=== PATIENT | female | born 1950 | race Caucasian/White ===

== ENCOUNTER → 2016-07-15 | Outpatient (CLI) | payer OTHER ==
[~2016-07-15] MED LIST: ASCA500 PO; B-CO-25 PO; CALC-354 PO; CALC500C70 PO; CHOL200027 PO; ELET40TA PO; LEVO25TA PO; LUTE10TA PO; MULTCHW PO; OMEG10007 PO; PANT40TA PO; SELENIUM PO; SIMV20TA5 PO; VITA400C28 PO; ZEAX5POW PO
[2016-07-15 11:06] LABS: BASO % 0.5 %; BASO ABS # 0.03 K/uL (0-0.2); COMPLETE YES; EOS % 3.4 %; HEMATOCRIT 38.9 % (37-47); IG% 0.2 %; LYMPH % 31.7 %; LYMPH ABS # 1.95 K/uL (1.2-3.4); MEAN CORPUSCULAR HEMOGLOBIN 31.9 pg (25-34); MEAN CORPUSCULAR HGB CONC 33.9 g/dl (32-36); MEAN PLATELET VOLUME 10.8 fL (7.4-10.4); MONO % 10.2 %; PLATELET COUNT 389 K/uL (130-400); RED BLOOD COUNT 4.14 M/uL (4.2-5.4); WHITE BLOOD COUNT 6.16 K/uL (4.8-10.8)
[2016-07-15 11:39] LABS: ALT/SGPT 24 U/L (12-78); BLOOD UREA NITROGEN 11 mg/dl (7-18); BUN/CREATININE RATIO 12.2 (10-20); CALCIUM 8.8 mg/dl (8.5-10.1); CARBON DIOXIDE 29 mmol/L (21-32); CHLORIDE 108 mmol/L (98-107); CHOLESTEROL 180 mg/dl (0-200); GLUCOSE 92 mg/dl (70-99); SODIUM 144 mmol/L (136-145)
[2016-07-15 11:49] LABS: ALKALINE PHOSPHATASE 75 U/L (45-117); AST/SGOT 22 U/L (15-37); HDL CHOLESTEROL 60 mg/dl; LDL CHOLESTEROL CALCULATED 97 mg/dl; TRIGLYCERIDES 114 mg/dl (0-150); VERY LOW DENSITY LIPOPROT CALC 23 mg/dl
--- NOTE | 2016-07-19 09:34 | CODING QUERY MEDICAL NECESSITY ---
SUPPORTING DIAGNOSIS NEEDED A supporting diagnosis is required for the test/procedure performed on this patient in order for us to be reimbursed by the patient's insurance. Please provide a supporting diagnosis for the following test/procedure listed below next to the test name along with your signature. *If there is no additional diagnosis for this patient that would support the following test/procedure please document that below next to the test/procedure. Test(s)/Procedure(s) that require a supporting diagnosis: DOS 07/15 * Vitamin D DIAGNOSIS: * TSH DIAGNOSIS: * Lipids DIAGNOSIS: Provider Signature: Date: Thank you Karina Davis Health Information Management Once completed, please kindly fax back to [phone] For questions please call [phone]
== END | disposition home or self-care (01) ==
LOC: C.LABBC 08:24
PROVIDERS: ATTEND Internal Medicine
DX: M85.80 Other specified disorders of bone density and structure, unspecified site (principal)

== ENCOUNTER → 2016-07-29 | Outpatient (CLI) | payer OTHER | END | disposition home or self-care (01) | LOC: C.LABBC 10:16 | PROVIDERS: ATTEND Internal Medicine | DX: Z11.59 Encounter for screening for other viral diseases (principal) ==

== ENCOUNTER → 2016-08-10 | Outpatient (CLI) | payer OTHER | END | disposition home or self-care (01) | LOC: C.MAMM 13:18 | PROVIDERS: ATTEND Internal Medicine | DX: E04.1 Nontoxic single thyroid nodule (principal); M85.80 Other specified disorders of bone density and structure, unspecified site; Z78.0 Asymptomatic menopausal state ==

== ENCOUNTER → 2016-10-20 | Day surgery (SDC) | payer OTHER ==
[2016-10-18 11:23] VITALS: BMI 23.0
[~2016-10-20] VITALS: Ht 152.4 cm; Wt 54.5 kg
[~2016-10-20] MED LIST changes: -CALC500C70 PO; -ELET40TA PO; +LIDOCAINE HCL 2% 2 ML VIAL (20MG/ML) ONE; +PROPOFOL IV EMULSION 10 MG/ML 20 ML VIAL IV ONE
--- NOTE | 2016-10-20 10:06 | Endo History and Physical ---
History & Physical Date of Service: Oct 20, 2016. Chief Complaint: GERD, Dysphagia Referring Physician: Dr. Poli Carter History of Present Illness 66 yo CF who presents for EGD secondary to GERD, Parker's Esophagus, and Dysphagia. Past Medical History High Cholesterol, Thyroid Disease Past Surgical History Hx Cardiac Surgery: No Hx Internal Defibrillator: No Hx Pacemaker: No Hx Abdominal Surgery: Yes (OLENA BSO, ECTOPIC WITH LEFT SALPINGECTOMY) Hx of Implantable Prosthesis: No Hx Post-Op Nausea and Vomiting: No Hx Cancer Surgery: No Hx Thoracic Surgery: No Hx Orthopedic: No Hx Urinary Tract Surgery: No Family History Colon CA Social History Smoking Status: Never Smoker Hx Substance Use: No Hx Alcohol Use: No Allergies Coded Allergies: Carbamazepine (Verified Allergy, Mild, ELEVATED LIVER ENZYMES, 10/20/16) Sulfa Drugs (Verified Allergy, Unknown, HIVES, 10/20/16) Erythromycin (Verified Adverse Reaction, Unknown, N/V, 10/20/16) Current Medications Reported Home Medications Medications Dose Route/Sig Max Daily Dose Days Date Category Vitamin C (Ascorbic Acid) 500 Mg Tab 1 Tab PO NOON 10/18/16 Reported Caltrate 600+D (Calcium Carbonate-Cholecalcife) 1 Tab Tab 1 Tab PO BID 10/18/16 Reported Synthroid (Levothyroxine Sodium) 25 Mcg Tab 25 Mcg PO QAM 09/10/15 Reported [Selenium] 200 Mg PO NOON 09/10/15 Reported Centrum Silver (Multiple Vitamins W/ Minerals) 1 Chw Chw 1 Tab PO NOON 09/10/15 Reported Lutein 10 Mg Tab 1 Tab PO NOON 09/10/15 Reported Zeaxanthin (Zeaxanthin (Bulk)) 1 Pow Pow 2 Mg PO NOON 05/20/14 Reported Vitamin C (Ascorbic Acid) 500 Mg Tab 1 Tab PO QAM 05/20/14 Reported Vitamin D-3 (Cholecalciferol) 2,000 Unit Tab 1 Tab PO NOON 05/20/14 Reported Super B Complex Maxi (B-Complex W/ Folic Acid) 1 Tab Tab 1 Tab PO NOON 05/20/14 Reported Zocor (Simvastatin) 20 Mg Tab 20 Mg PO QPM 05/20/14 Reported Protonix (Pantoprazole Sodium) 40 Mg Tab 40 Mg PO QAM 05/20/14 Reported Alph-E (Vitamin E) 400 Unit Cap 1 Tab PO NOON 01/29/14 Reported [place]-3 (Fish Oil) 1 Ea Cap 1 Cap PO NOON 02/13/09 Reported Vital Signs Weight (Kilograms): 54.55 Height (Feet): 5 Height (Inches): 0 Physical Exam General Appearance: WD/WN, no apparent distress Respiratory/Chest: Auscultation: breath sounds normal Cardiovascular: Heart Auscultation: RRR Abdomen: Bowel Sounds: normal Inspection & Palpation: soft, non-distended, no tenderness, guarding & rebound Assessment and Plan Assessment: 66 yo CF who presents for EGD secondary to GERD, Parker's esophagus and Dysphagia. Plan: Proceed with EGD.
[2016-10-20 10:07] VITALS: Ht 152.4 cm; Wt 54.5 kg
--- NOTE | 2016-10-20 10:57 | Discharge Instructions ---
Endoscopy Patient Instructions Date / Procedure(s) Performed Oct 20, 2016. EGD Allergy Information Coded Allergies: Carbamazepine (Verified Allergy, Mild, ELEVATED LIVER ENZYMES, 10/20/16) Sulfa Drugs (Verified Allergy, Unknown, HIVES, 10/20/16) Erythromycin (Verified Adverse Reaction, Unknown, N/V, 10/20/16) Discharge Date / Findings Oct 20, 2016. Gastric polyps with biopsies Parker's Esophagus with biopsies Balloon dilation of the esophagus to 20 mm Hiatal hernia Medication Instructions OK to resume all medications today as prescribed Reported Home Medications Medications Dose Route/Sig Max Daily Dose Days Date Category Vitamin C (Ascorbic Acid) 500 Mg Tab 1 Tab PO NOON 10/18/16 Reported Caltrate 600+D (Calcium Carbonate-Cholecalcife) 1 Tab Tab 1 Tab PO BID 10/18/16 Reported Synthroid (Levothyroxine Sodium) 25 Mcg Tab 25 Mcg PO QAM 09/10/15 Reported [Selenium] 200 Mg PO NOON 09/10/15 Reported Centrum Silver (Multiple Vitamins W/ Minerals) 1 Chw Chw 1 Tab PO NOON 09/10/15 Reported Lutein 10 Mg Tab 1 Tab PO NOON 09/10/15 Reported Zeaxanthin (Zeaxanthin (Bulk)) 1 Pow Pow 2 Mg PO NOON 05/20/14 Reported Vitamin C (Ascorbic Acid) 500 Mg Tab 1 Tab PO QAM 05/20/14 Reported Vitamin D-3 (Cholecalciferol) 2,000 Unit Tab 1 Tab PO NOON 05/20/14 Reported Super B Complex Maxi (B-Complex W/ Folic Acid) 1 Tab Tab 1 Tab PO NOON 05/20/14 Reported Zocor (Simvastatin) 20 Mg Tab 20 Mg PO QPM 05/20/14 Reported Protonix (Pantoprazole Sodium) 40 Mg Tab 40 Mg PO QAM 05/20/14 Reported Alph-E (Vitamin E) 400 Unit Cap 1 Tab PO NOON 01/29/14 Reported [place]-3 (Fish Oil) 1 Ea Cap 1 Cap PO NOON 02/13/09 Reported Provider Instructions Activity Restrictions - No exercising or heavy lifting for 24 hours. - Do not drink alcohol the day of the procedure. - Do not drive a car or operate machinery until the day after the procedure. - Do not make any important decisions or sign important papers in 24 hours after the procedure. Following Day: - Return to full activity which may include returning to work/school. Diet Start your diet with liquids and light foods (jello, soup, juice, toast). Then eat your usual diet if not nauseated. Treatment For Common After Affects For mild abdominal pain, bloating, or excessive gas: - Rest - Eat lightly - Lie on right side Follow-Up Information Follow-up with Dr. Poli Carter as scheduled Anesthesia Information What You Should Know You have had a procedure that required some medicine to reduce anxiety and discomfort. This treatment is called moderate sedation. After receiving the treatment, you may be sleepy, but you will be able to breathe on your own. The effects of the treatment may last for several hours. Follow these instructions along with Activity/Diet recommendations noted above: * Do NOT do anything where dizziness or clumsiness would be dangerous. * Rest quietly at home today, then you can be up and about tomorrow. * Have a responsible person stay with you the rest of today. * You may have had an I.V. today. If so, you may take the dressing off later today. Recommendations Call your doctor if: * Trouble breathing * Continuous vomiting for more than 24 hours * Temperature above 101 degrees * Severe abdominal pain or bloating * Pain not relieved by pain medicine ordered * There is increased drainage or redness from any incision * A large amount of rectal bleeding greater than 2-3 tablespoons. (If you had a polyp/s removed or have hemorrhoids, a small amount of blood - from the rectum is to be expected.) * You have any unanswered questions or concerns. IN THE EVENT OF A SERIOUS EMERGENCY, GO TO THE NEAREST EMERGENCY ROOM Your discharge instructions were prepared by provider Nir Darnell. Patient Instructions Signature Page Lucrecia Hirsch Patient (or Guardian) Signature/Date: I have read and understand the instructions given to me by my caregivers. Caregiver/RN/Doctor Signature/Date: The above-named patient and/or guardian has received patient instructions on this date. + Original Patient Signature Page (only) stays with chart. Please make copy for patient.
--- NOTE | 2016-10-20 11:03 | GI REPORT ---
Procedure Date: 10/20/2016 10:08 AM Procedure: Upper GI endoscopy Indications: Dysphagia, Gastro-esophageal reflux disease, Follow-up of Parker's esophagus Medicines: Monitored Anesthesia Care Complications: No immediate complications. Estimated Blood Loss: Estimated blood loss: none. Procedure: Pre-Anesthesia Assessment: - Prior to the procedure, a History and Physical was performed, and patient medications and allergies were reviewed. The patient's tolerance of previous anesthesia was also reviewed. The risks and benefits of the procedure and the sedation options and risks were discussed with the patient. All questions were answered, and informed consent was obtained. Prior Anticoagulants: The patient has taken no previous anticoagulant or antiplatelet agents. ASA Grade Assessment: II - A patient with mild systemic disease. After reviewing the risks and benefits, the patient was deemed in satisfactory condition to undergo the procedure. After obtaining informed consent, the endoscope was passed under direct vision. Throughout the procedure, the patient's blood pressure, pulse, and oxygen saturations were monitored continuously. The scope was introduced through the mouth, and advanced to the second part of duodenum. The upper GI endoscopy was accomplished without difficulty. The patient tolerated the procedure well. Findings: There were esophageal mucosal changes consistent with short-segment Parker's esophagus present at the gastroesophageal junction. The maximum longitudinal extent of these mucosal changes was 2 cm in length. Mucosa was biopsied with a cold forceps for histology. One specimen bottle was sent to pathology. No endoscopic abnormality was evident in the esophagus to explain the patient's complaint of dysphagia. It was decided, however, to proceed with dilation at the gastroesophageal junction. A TTS dilator was passed through the scope. Dilation with an 18-19-20 mm balloon (to a maximum balloon size of 20 mm) dilator was performed. The dilation site was examined and showed no change. Multiple 2 to 6 mm sessile polyps with no bleeding and no stigmata of recent bleeding were found in the gastric fundus. Biopsies were taken with a cold forceps for histology. A small hiatus hernia was present. Impression: - Esophageal mucosal changes consistent with short-segment Parker's esophagus. Biopsied. - No endoscopic esophageal abnormality to explain patient's dysphagia. Esophagus dilated. Dilated. - Multiple gastric polyps. Biopsied. - Small hiatus hernia. Recommendation: - Resume previous diet. - Continue present medications. - Await pathology results. - Return to GI clinic as previously scheduled. Nir Darnell, DO 10/20/2016 11:02:14 AM This report has been signed electronically. Note Initiated On: 10/20/2016 10:08 AM I attest to the content of the Intraoperative Record and orders documented therein, exceptions below
[2016-10-20 11:21] VITALS: BP 137/76; PULSE 63; O2SAT 100
--- NOTE | 2016-10-20 14:30 | Anesthesiology Progress Note ---
Anesthesia Post Op Note Date & Time Oct 20, 2016 at 14:29 Vital Signs Pain Intensity: 0 Vital Signs Past 12 Hours Date Time Temp Pulse Resp B/P Pulse Ox O2 Delivery O2 Flow Rate FiO2 10/20/16 11:21 63 20 137/76 100 Room Air 10/20/16 11:06 68 20 120/65 98 Room Air 10/20/16 10:51 75 20 99/53 98 Room Air 10/20/16 10:15 36.8 77 18 156/88 98 Room Air Notes Mental Status: alert / awake / arousable, participated in evaluation Pt Amnestic to Procedure: Yes Nausea / Vomiting: adequately controlled Pain: adequately controlled Airway Patency, RR, SpO2: stable & adequate BP & HR: stable & adequate Hydration State: stable & adequate Anesthetic Complications: no major complications apparent
== END | disposition home or self-care (01) ==
LOC: C.GI 09:48
PROVIDERS: ATTEND Internal Medicine
DX: R13.10 Dysphagia, unspecified (principal); K21.9 Gastro-esophageal reflux disease without esophagitis; Z09 Encounter for follow-up examination after completed treatment for conditions other than malignant neoplasm; K31.7 Polyp of stomach and duodenum; K44.9 Diaphragmatic hernia without obstruction or gangrene; E78.00 Pure hypercholesterolemia, unspecified; Z68.24 Body mass index [BMI] 24.0-24.9, adult; M19.90 Unspecified osteoarthritis, unspecified site; Z88.1 Allergy status to other antibiotic agents; Z88.2 Allergy status to sulfonamides; Z80.0 Family history of malignant neoplasm of digestive organs

== ENCOUNTER → 2017-02-02 | Outpatient (CLI) | payer OTHER ==
[~2017-02-02] MED LIST changes: -LIDOCAINE HCL 2% 2 ML VIAL (20MG/ML) ONE; -PROPOFOL IV EMULSION 10 MG/ML 20 ML VIAL IV ONE
[2017-02-10 16:01] LABS: CRYPTOSPORIDIUM AG TC 37213 NOT DETECTED (NOT DETECTED); ISOSPORA+CYCLOSPORA NOT DETECTED (NOT DETECTED); O&P GIARDIA AG NOT DETECTED (NOT DETECTED); O&P SOURCE OTHER-STOOL
== END | disposition home or self-care (01) ==
LOC: C.LAB1850 07:19
PROVIDERS: ATTEND Registered Nurse
DX: R19.7 Diarrhea, unspecified (principal)

== ENCOUNTER → 2017-04-01 | Outpatient (CLI) | payer OTHER ==
--- NOTE | 2017-04-01 12:44 | MAMMOGRAPHY REPORT ---
BILATERAL DIGITAL SCREENING MAMMOGRAM WITH CAD: 04/01/2017 CLINICAL HISTORY: Routine screening. TECHNIQUE: Current study was also evaluated with a Computer Aided Detection (CAD) system. Bilateral CC and MLO views were obtained. COMPARISON: Comparison is made to exams dated: 03/30/2016 mammogram, 03/27/2015 mammogram, 03/06/2014 m ammogram, 02/13/2013 mammogram, 02/03/2012 mammogram, and 01/26/2011 mammogram - [facility] nter. BREAST COMPOSITION: There are scattered areas of fibroglandular density in both breasts. FINDINGS: No suspicious masses, calcifications, or areas of architectural distortion are noted in ei ther breast. There has been no significant interval change compared to prior exams. There are stable post surgical changes in the right 12:00 breast at the site of the prior excisional biopsy. Benign dystrophic calcifications at the surgical bed are stable. A linear scar marker denotes a scar on the right 12:00 breast. IMPRESSION: ACR BI-RADS CATEGORY 2: BENIGN There is no mammographic evidence of malignancy. A 1 year screening mammogram is recommended. The pa tient will receive written notification of the results. Approximately 10% of breast cancers are not detected with mammography. A negative mammographic report should not delay biopsy if a clinically suggestive mass is present. Beronica Painter M.D. /:04/01/2017 07:42:04 Multifocal Lens Inspector: Taylor SOFIA)(Marielle), [facility] letter sent: Normal 1/2 BI-RADS Code: ACR BI-RADS Category 2: Benign
== END | disposition home or self-care (01) ==
LOC: C.MAMM 07:20
PROVIDERS: ATTEND Internal Medicine
DX: Z12.31 Encounter for screening mammogram for malignant neoplasm of breast (principal)

== ENCOUNTER → 2017-07-25 | Outpatient (CLI) | payer OTHER ==
[2017-07-25 11:46] LABS: BASO % 0.3 %; BASO ABS # 0.02 K/uL (0-0.2); EOS % 2.6 %; EOS ABS # 0.17 K/uL (0-0.5); HEMATOCRIT 39.4 % (37-47); HEMOGLOBIN 13.4 g/dL (12.0-16.0); IG# 0.02 K/uL (0.00-0.02); LYMPH % 27.2 %; LYMPH ABS # 1.76 K/uL (1.2-3.4); MEAN CELL VOLUME 94.3 fL (80-100); MEAN CORPUSCULAR HEMOGLOBIN 32.1 pg (25-34); MEAN PLATELET VOLUME 10.8 fL (7.4-10.4); MONO % 11.4 %; MONO ABS # 0.74 K/uL (0.11-0.59); NEUT % 58.2 %; NEUT ABS # 3.76 K/uL (1.4-6.5); PLATELET COUNT 385 K/uL (130-400); RED CELL DISTRIBUTION WIDTH CV 12.9 % (11.5-14.5); RED CELL DISTRIBUTION WIDTH SD 44.5 fL (36.4-46.3); WHITE BLOOD COUNT 6.47 K/uL (4.8-10.8)
[2017-07-25 12:06] LABS: ALBUMIN 3.7 gm/dl (3.4-5.0); ALT/SGPT 21 U/L (12-78); BLOOD UREA NITROGEN 12 mg/dl (7-18); CALCIUM 9.1 mg/dl (8.5-10.1); CARBON DIOXIDE 27 mmol/L (21-32); CHOLESTEROL 185 mg/dl (0-200); CREATININE 0.91 mg/dl (0.60-1.20); GLUCOSE 98 mg/dl (70-99); POTASSIUM 4.1 mmol/L (3.5-5.1); SODIUM 140 mmol/L (136-145)
[2017-07-25 12:18] LABS: ALKALINE PHOSPHATASE 77 U/L (45-117); AST/SGOT 20 U/L (15-37); LDL CHOLESTEROL CALCULATED 104 mg/dl; TOTAL PROTEIN 7.4 gm/dl (6.4-8.2)
== END | disposition home or self-care (01) ==
LOC: C.LABBC 08:01
PROVIDERS: ATTEND Internal Medicine
DX: Z00.00 Encounter for general adult medical examination without abnormal findings (principal); K22.70 Barrett's esophagus without dysplasia; E78.5 Hyperlipidemia, unspecified; E03.9 Hypothyroidism, unspecified; R03.0 Elevated blood-pressure reading, without diagnosis of hypertension; E04.1 Nontoxic single thyroid nodule

== ENCOUNTER 2020-12-15 19:24 | Observation (INO) ==
[2020-12-15 20:56] LABS: Appearance Urine Clear (Clear); Bacteria Urine Automated Negative (Negative); Bilirubin Urine Negative (Negative); Blood Urine Trace (Negative); Cast Urine Automated 0 /lpf (0-5); Color Urine Yellow; Epithelial Cell Urine Auto 0-5 /lpf (0-5); Glucose Urine UA Negative (Negative); Ketones Urine Negative (Negative); Leukocyte Esterase Urine Negative (Negative); Nitrite Urine Negative (Negative); Protein Urine Negative (Negative); RBC Urine Automated 0-4 /hpf (0-4); Specific Gravity Urine > 1.045 (1.000-1.030); Urobilinogen Urine Negative (Negative); WBC Urine Automated 0 /hpf (0-5)
[2020-12-15 23:05] LABS: Basophils # (auto) 0.02 K/uL (0-0.2); Basophils % (auto) 0.3 %; Eosinophils # (auto) 0.12 K/uL (0-0.5); Eosinophils % (auto) 1.7 %; Hematocrit (blood only) 37.4 % (37-47); Hemoglobin 12.8 g/dL (12.0-16.0); Immature Granulocytes # (auto) 0.01 K/uL (0.00-0.02); Immature Granulocytes % (auto) 0.1 %; Lymphocytes # (auto) 2.22 K/uL (1.2-3.4); Lymphocytes % (auto) 31.9 %; Mean Corpuscular Hemoglobin 32.2 pg (25-34); Mean Corpuscular Hgb Conc 34.2 g/dL (32-36); Mean Platelet Volume 9.9 fL (7.4-10.4); Monocytes # (auto) 0.69 K/uL (0.11-0.59); Monocytes % (auto) 9.9 %; Neutrophils # (auto) 3.91 K/uL (1.4-6.5); Neutrophils % (auto) 56.1 %; Platelet Count 397 K/uL (130-400); RDW Coefficient of Variation 13.1 % (11.5-14.5); RDW Standard Deviation 45.4 fL (36.4-46.3); Red Blood Count 3.98 M/uL (4.2-5.4); White Blood Count 6.97 K/uL (4.8-10.8)
[2020-12-15] MEDS ORDERED: cefOXitin 2,000 MG/60 ML BAG IV STA (23:07)
--- NOTE | 2020-12-15 23:23 | Emergency Department Note ---
Impression & Plan Abdominal pain, Diverticulitis, Acute appendicitis ED Provider Note NAME: MYLA RODRIGUEZ AGE: 70 SEX: F : 1950 ARRIVES VIA: Walk-In INFORMANT: Patient, ED PROVIDER(S): Ayan Sharp MD CHIEF COMPLAINT: Abd pain HPI: This 70-year-old female who presents emergency department after being sent over from CAT scan. The patient reports that she has had abdominal pain since . The patient notes she has a history of diverticulosis and was told by her doctor to switch to a clear liquid diet when this happens. She reports that the pain was much worse over the weekend however she feels that the clear liquid diet has caused the pain to get better. The patient was sent over for concerns about diverticulitis versus appendicitis on the CAT scan of the abdomen and pelvis. She has not taken anything for the pain prior to arrival. She reports a clear liquid diet made the pain better and nothing really makes it worse. She describes the pain as an aching sensation with radiation across her abdomen. ROS: See above HPI for pertinent positives & negatives. A total of 10 systems reviewed and were otherwise negative. PAST MEDICAL HISTORY: See Below PAST SURGICAL HISTORY: See Below FAMILY HISTORY: See Below SOCIAL HISTORY: See Below HOME MEDICATIONS: See Below ALLERGIES: See Below VITALS: See Below PHYSICAL EXAMINATION: VITAL SIGNS - Vital signs and nursing notes were reviewed. GENERAL - 70-year-old female appearing stated age who is in no acute distress. Communicates well with provider and answers questions appropriately. SKIN - Without rashes. HEAD - NC/AT. EYES - PERRL with EOMI bilaterally. Sclera anicteric. Palpebral conjunctiva pink and moist with no injection noted. EARS - No deformities of external structures noted on gross examination bilaterally. NOSE - Midline and without cyanosis. No epistaxis or purulent drainage noted. Septum midline without deviation or septal hematoma noted. MOUTH/OROPHARYNX - Without perioral cyanosis. Buccal mucosa pink and moist and without leukoplakia. Tongue midline with equal elevation of palate bilaterally. No tonsillar hypertrophy, erythema, or exudates noted. NECK - Neck with FROM. Supple to palpation. No nuchal rigidity. LUNGS - Chest wall symmetric without accessory muscle use, intercostals retractions, or central cyanosis. Normal vesicular breath sounds CTA B/L. No wheezes, rales, or rhonchi appreciated. CARDIAC - RRR with S1/S2. No murmur, rubs, or gallops appreciated. ABDOMEN - Abdominal contour without pulsations or visible masses. EXTREMITIES - No clubbing or peripheral cyanosis. No pretibial edema present. +3/5 radial, posterior tibial, and dorsalis pedis pulses palpated throughout. +5/5 strength noted in UE/LE bilaterally. NEUROLOGIC - Cranial nerves II through XII grossly intact. Sensory intact to light touch throughout. Patellar reflexes +2/4. PSYCH - A&Ox3 and cooperates fully with examiner. Pt is very pleasant and interacts well with examiner. MEDICAL DECISION MAKING: Patient was seen and evaluated as above in room A12. Review was performed of leann sing notes and vital signs. I did review pertinent previous visits and patient history. After obtaining a thorough history and physical examination the above work up was performed. This 70-year-old female who presents emergency department complaining of abdominal pain. Patient is tender to the right lower quadrant. I did discuss the case with the surgery team who was kind enough to come and see the patient. I will note that the patient does not have an elevation in her white blood cell count. She was started on IV Zosyn. Patient and are in agreement with the treatment plan. An order was placed for continuous cardiac monitoring. The monitor shows a rate of 72 with Normal SInus rhythm. The patient was evaluated during a period of high volume and high acuity during the global COVID-19 pandemic, and that diagnosis was suspected/considered upon their initial presentation. Their evaluation, treatment and testing was consistent with current guidelines for patients who present with complaints or symptoms that may be related to COVID-19. Patient was seen while provider was wearing PPE. Triage Nursing notes reviewed. Prior medical records reviewed Vital Signs: reviewed and remarkable for no significant abnormalities Differential diagnosis: Appendicitis, ovarian cyst, ovarian torsion, ectopic , TOA, PID, infections, diverticulitis, UTI, obstruction, mesenteric ischemia, aortic pathology, inflammatory bowel disease, renal colic, PUD, pancreatitis, biliary pathology, hernia, volvulus, constipation, as well as other pathologies. ER treatment provided: See below Diagnostics interpreted by me: ECG: EKG shows a normal sinus rhythm old anterior infarct QTC is 444 ventricular rate is 83. EKG is compared to 10/30/2019 no significant changes fo und. Laboratory studies: As stated above and show below. Imaging studies: See below Consultation(s): Gen Surgery Past Med/Surg History Medical History (Updated 12/17/20 @ 02:24 by Ayan Sharp MD) Barretts esophagus GERD (gastroesophageal reflux disease) Hiatal hernia History of ectopic Hyperlipidemia Hypothyroidism Migraine Osteoarthritis Rectal bleeding Surgical History History of breast biopsy History of colonoscopy History of esophagogastroduodenoscopy (EGD) History of hysterectomy History of laparoscopy History of left salpingo-oophorectomy History of tooth extraction Status post biopsy of thyroid gland Family History Mother Family hx of colon cancer Malignant neoplasm of gastrointestinal tract Father Myocardial infarction Hypertension Brother Atrial fibrillation Social History Smoking Status: Never smoker Second Hand Exposure: No; Hx Alcohol Use: Yes Alcohol type: wine Hx Substance Use: No Preferred Language: Armenian Communication Ability: Effective Visual Impairment: Limited Hearing Ability: Normal Hospice Chaplain Required: No Beliefs That Will Affect Care: None marital status: Current Living Situation: Spouse current occupational status: retired How many Children do You have: 4 Feels Safe at Home: Yes Childhood Exposure to Second-Hand Smoke: No caffeine: No Dental Care, Regularly: Yes Physical Activity Frequency: 3-4 Times per Week Physical Activity Frequency Comment: cardio/gym Seatbelt Use: always Sunscreen Use: Yes Do you think of yourself as: straight/heterosexual Assistive Devices: None Allergies Allergies Allergy/AdvReac Type Severity Reaction Status Date / Time alendronate sodium Allergy Intermediate HIVES/UPSET Verified 12/15/20 23:41 [From Fosamax] STOMACH/LEGS AND ARM CRAMPING carbamazepine Allergy Mild ELEVATED Verified 12/15/20 23:41 LIVER ENZYMES Sulfa (Sulfonamide Allergy Mild HIVES Verified 12/15/20 23:41 Antibiotics) erythromycin base AdvReac Mild N/V Verified 12/15/20 23:41 Home Meds Home Medications Medication Instructions Recorded Confirmed Caltrate 600 plus D 1 tab PO BID 04/11/18 12/15/20 [place]-3 1 cap PO QDL 04/11/18 12/15/20 cholecalciferol (vitamin D3) 2,000 unit PO QDL 04/11/18 12/15/20 [Vitamin D3] eletriptan [Relpax] 1 tab PO UD PRN 04/11/18 12/15/20 lutein-zeaxanthin 1 cap PO QDL 04/11/18 12/15/20 ascorbic acid (vitamin C) [Vitamin 500 mg PO QDL 03/16/19 12/15/20 C] vitamin B complex 1 tab PO QDL 03/16/19 12/15/20 Previous Rx's Medication Instructions Recorded amlodipine 2.5 mg tablet 2.5 mg PO DAILY #90 tab 09/17/20 levothyroxine 25 mcg tablet 25 mcg PO DAILY #90 tab 09/17/20 pantoprazole 40 mg tablet,delayed 40 mg PO QAM #90 tab 09/17/20 release simvastatin 20 mg tablet 20 mg PO HS #90 tab 09/17/20 amoxicillin-pot clavulanate 1 tab PO BID 10 Days #20 tab 12/16/20 [Augmentin] Results & Data (ED) Vital Signs Vital Signs - 24 hr 12/15/20 20:03 12/15/20 23:04 Temperature 36.7 C Temperature Source Temporal Artery Scan Pulse Rate 87 Pulse Rate [Bilateral Apical] 86 Respiratory Rate 18 20 Respiratory Effort / Characteristics Non-Labored Spontaneous Respiratory Depth Normal Respiratory Pattern Regular Blood Pressure 170/85 H Blood Pressure [Right Arm] 147/59 H Blood Pressure Mean 113 Blood Pressure Mean [Right Arm] 88 Blood Pressure Position Sitting Pulse Oximetry 99 99 Oxygen Delivery Method Room Air Room Air Sepsis Recent Fever Within 48 Hours No Sepsis New/Unexplained Change in Mental Status N/A Sepsis Action Taken by Nursing No Action Required Laboratory Data Result diagrams: 12/16/20 05:52 12/16/20 05:52 Lab Results 12/15/20 12/15/20 12/15/20 Range/Units 20:05 22:50 22:50 WBC 6.97 (4.8-10.8) K/uL RBC 3.98 L (4.2-5.4) M/uL Hgb 12.8 (12.0-16.0) g/dL Hct 37.4 (37-47) % MCV 94.0 (80-100) fL MCH 32.2 (25-34) pg MCHC 34.2 (32-36) g/dL RDW Std Deviation 45.4 (36.4-46.3) fL RDW Coeff of Danny 13.1 (11.5-14.5) % Plt Count 397 (130-400) K/uL MPV 9.9 (7.4-10.4) fL Immature Gran % (Auto) 0.1 % Neut % (Auto) 56.1 % Lymph % (Auto) 31.9 % [place] % (Auto) 9.9 % Eos % (Auto) 1.7 % Baso % (Auto) 0.3 % Neut # (Auto) 3.91 (1.4-6.5) K/uL Lymph # (Auto) 2.22 (1.2-3.4) K/uL [place] # (Auto) 0.69 H (0.11-0.59) K/uL Eos # (Auto) 0.12 (0-0.5) K/uL Baso # (Auto) 0.02 (0-0.2) K/uL Immature Gran # (Auto) 0.01 (0.00-0.02) K/uL Sodium 141 (136-145) mmol/L Potassium 4.1 (3.5-5.1) mmol/L Chloride 109 H (98-107) mmol/L Carbon Dioxide 24 (21-32) mmol/L Anion Gap 8.0 (3-11) BUN 17 (7-18) mg/dl Creatinine 0.96 (0.6-1.2) mg/dl Est Cr Clr Drug Dosing 40.3 ml/min Est GFR ( Amer) 69.4 ml/min Est GFR (Non-Af Amer) 59.9 ml/min BUN/Creatinine Ratio 18.1 (10-20) Glucose 88 (70-99) mg/dl Calcium 9.3 (8.5-10.1) mg/dl Total Bilirubin 0.6 (0.2-1) mg/dl AST 20 (15-37) U/L ALT 20 (12-78) U/L Alkaline Phosphatase 57 (45-117) U/L Total Protein 8.1 (6.4-8.2) gm/dl Albumin 3.9 (3.4-5.0) gm/dl Globulin 4.2 H (2.5-4.0) gm/dl Albumin/Globulin Ratio 0.9 (0.9-2) Lipase 204 (73-393) U/L Urine Color Yellow Urine Appearance Clear (Clear) Urine pH 8.0 H (4.5-7.5) Ur Specific [place] > 1.045 H (1.000-1.030) Urine Protein Negative (Negative) Urine Glucose (UA) Negative (Negative) Urine Ketones Negative (Negative) Urine Blood Trace H (Negative) Urine Nitrite Negative (Negative) Urine Bilirubin Negative (Negative) Urine Urobilinogen Negative (Negative) Ur Leukocyte Esterase Negative (Negative) Urine WBC (Auto) 0 (0-5) /hpf Urine RBC (Auto) 0-4 (0-4) /hpf U Hyaline Cast (Auto) 0 (0-5) /lpf U Epithel Cells (Auto) 0-5 (0-5) /lpf Urine Bacteria (Auto) Negative (Negative) COVID-19 Eval Order SARS-CoV-2 (PCR) (Negative) 12/15/20 12/15/20 Range/Units 23:20 23:20 WBC (4.8-10.8) K/uL RBC (4.2-5.4) M/uL Hgb (12.0-16.0) g/dL Hct (37-47) % MCV (80-100) fL MCH (25-34) pg MCHC (32-36) g/dL RDW Std Deviation (36.4-46.3) fL RDW Coeff of Danny (11.5-14.5) % Plt Count (130-400) K/uL MPV (7.4-10.4) fL Immature Gran % (Auto) % Neut % (Auto) % Lymph % (Auto) % [place] % (Auto) % Eos % (Auto) % Baso % (Auto) % Neut # (Auto) (1.4-6.5) K/uL Lymph # (Auto) (1.2-3.4) K/uL [place] # (Auto) (0.11-0.59) K/uL Eos # (Auto) (0-0.5) K/uL Baso # (Auto) (0-0.2) K/uL Immature Gran # (Auto) (0.00-0.02) K/uL Sodium (136-145) mmol/L Potassium (3.5-5.1) mmol/L Chloride (98-107) mmol/L Carbon Dioxide (21-32) mmol/L Anion Gap (3-11) BUN (7-18) mg/dl Creatinine (0.6-1.2) mg/dl Est Cr Clr Drug Dosing ml/min Est GFR ( Amer) ml/min Est GFR (Non-Af Amer) ml/min BUN/Creatinine Ratio (10-20) Glucose (70-99) mg/dl Calcium (8.5-10.1) mg/dl Total Bilirubin (0.2-1) mg/dl AST (15-37) U/L ALT (12-78) U/L Alkaline Phosphatase (45-117) U/L Total Protein (6.4-8.2) gm/dl Albumin (3.4-5.0) gm/dl Globulin (2.5-4.0) gm/dl Albumin/Globulin Ratio (0.9-2) Lipase (73-393) U/L Urine Color Urine Appearance (Clear) Urine pH (4.5-7.5) Ur Specific [place] (1.000-1.030) Urine Protein (Negative) Urine Glucose (UA) (Negative) Urine Ketones (Negative) Urine Blood (Negative) Urine Nitrite (Negative) Urine Bilirubin (Negative) Urine Urobilinogen (Negative) Ur Leukocyte Esterase (Negative) Urine WBC (Auto) (0-5) /hpf Urine RBC (Auto) (0-4) /hpf U Hyaline Cast (Auto) (0-5) /lpf U Epithel Cells (Auto) (0-5) /lpf Urine Bacteria (Auto) (Negative) COVID-19 Eval [address] Covid19 at [facility] SARS-CoV-2 (PCR) NEGATIVE (Negative) Administered Medications Discontinued Medications Cefoxitin Sodium (Mefoxin) 2,000 mg in 60 mls @ 100 mls/hr IV NOW STA Stop: 12/15/20 23:42 Last Admin: 12/15/20 23:36 Dose: Not Given Documented by: [id number] Piperacillin Sod/Tazobactam Sod (Zosyn) 4.5 gm in 120 mls @ 240 mls/hr IV NOW STA Stop: 12/16/20 00:01 Last Infusion: 12/16/20 00:19 Dose: 0 mls/hr Documented by: [id number] Admin: 12/15/20 23:48 Dose: 240 mls/hr Documented by: [id number] Lactated Ringer's (Lr) 1,000 mls @ 75 mls/hr IV .[id number] [facility] Stop: 01/15/21 02:29 Last Infusion: 12/16/20 17:12 Dose: 0 mls/hr Documented by: [id number] Infusion: 12/16/20 06:37 Dose: 75 mls/hr Documented by: [id number] Infusion: 12/16/20 06:15 Dose: 75 mls/hr Documented by: [id number] Infusion: 12/16/20 04:03 Dose: 0 mls/hr Documented by: [id number] Admin: 12/16/20 02:46 Dose: 75 mls/hr Documented by: [id number] Piperacillin Sod/Tazobactam (Sod 3.375 gm/ Dextrose) 115 mls @ 28.75 mls/hr IV Q8H [facility]; Protocol Stop: 12/26/20 03:59 Last Infusion: 12/16/20 17:12 Dose: 0 mls/hr Documented by: [id number] Admin: 12/16/20 12:41 Dose: 28.8 mls/hr Documented by: [id number] Infusion: 12/16/20 08:02 Dose: 0 mls/hr Documented by: [id number] Admin: 12/16/20 04:03 Dose: 28.8 mls/hr Documented by: [id number] Imaging Data Radiologist's Impression: Chest X-Ray 12/15/20 23:10 XR chest 1V portable HISTORY: 70 years-old Female Pt acute appendictis acute right lower quadrant abdominal pain COMPARISON: CT abdomen and pelvis of same day, chest radiographs 10/30/2019 TECHNIQUE: Portable AP view of the chest FINDINGS: The cardiomediastinal and hilar silhouettes are within normal limits. There is no pneumothorax, pleural effusion, airspace consolidation or overt pulmonary edema. Degenerative changes of the shoulders and spine. Mild sigmoidal scoliosis of the thoracic spine. IMPRESSION: No acute process. ACT 112: Negative or not required by law. The above report was generated using voice recognition software. It may contain grammatical, syntax or spelling errors. Electronically signed by: Shahid Lerner M.D. 12/16/2020 6:42 AM Discharge Plan Visit Data Chief Complaint: Abdominal Pain Stated Complaint: ABD PAIN, POSSIBLE APPENDICITIS ED Provider: Ayan Sharp Discharge Problem: Abdominal pain, Diverticulitis, Acute appendicitis Patient Disposition: Admitted As Inpatient Discharge Instructions Interventions: ED Discharge Assessment Last Done: 12/16/20 02:04 Discharge Problem: Abdominal pain Qualifiers: Abdominal location: unspecified location Qualified Code(s): R10.9 - Unspecified abdominal pain Acute appendicitis Qualifiers: Acute appendicitis type: unspecified acute appendicitis type Qualified Code(s): K35.80 - Unspecified acute appendicitis
[2020-12-15 23:24] LABS: Albumin Level 3.9 gm/dl (3.4-5.0); BUN Creatinine Ratio 18.1 (10-20); Calcium 9.3 mg/dl (8.5-10.1); Creatinine Clr Calc Pharmacy 40.3 ml/min; Est GFR (African American) 69.4 ml/min; Est GFR (Non-African American) 59.9 ml/min; Potassium 4.1 mmol/L (3.5-5.1)
[2020-12-15 23:28] LABS: Albumin Globulin Ratio 0.9 (0.9-2); Bilirubin,Total 0.6 mg/dl (0.2-1); Globulin 4.2 gm/dl (2.5-4.0); Total Protein 8.1 gm/dl (6.4-8.2)
[2020-12-15] MEDS ORDERED: PIPERACILL/TAZOBAC CONSULT ACTIVE PRN (23:30)
[2020-12-15] MEDS ORDERED: PIPERACILLIN/TAZOBACTAM 4.5 GM/120 ML BAG IV STA (23:32)
--- NOTE | 2020-12-15 23:37 | History & Physical Report ---
Date of Service December 15, 2020 Assessment & Plan (1) RLQ abdominal pain: Due to the patient's abdominal pain as well as her CT scan findings she will be admitted to the hospital we will proceed as follows: We will keep the patient n.p.o. Provide hydration with IV fluids Provide analgesics Provide antiemetics We will initiate antibiotics in the form of Zosyn. This will cover both appendicitis as well as diverticulitis with which both may be at play contributing to abdominal pain. We will repeat labs in the morning Patient will be reevaluated in the morning and determine if patient will require surgery for appendicitis. If clinical improvement is noted with antibiotics alone she may be able to be transitioned to oral antibiotics and forego any surgical intervention but this is yet to be determined. We will utilize SCDs for DVT prevention. We will not use any chemical means until we are certain and no surgical intervention is needed I did question the patient CODE STATUS in the event of cardiopulmonary rest she is a level 1 full code History of Present Illness Chief Complaint: Abdominal pain Primary Care Provider: Poli Carter MD This is a 70-year-old female who presented to [facility] emergency department secondary to proximately 1 week of abdominal pain. She said the abdominal pain originated in her lower abdomen and has remained there since but is most localized to the right lower quadrant at this time. She denies any radiation of the pain. She denies any palliative or provocative factors. She says she has not had any fevers, shakes, chills. She denies any nausea or vomiting. Denies any change in bowel habits specifically denying any bright blood per rectum or melanotic stools. Patient does note she has had 2 prior abdominal surgeries including an ectopic as well as a hysterectomy. Because the pain has persisted she went saw her primary care physician who ordered a CT scan of her abdomen and pelvis. This showed concern of a dilated appendix along with the potential for sigmoid diverticulitis. Because of this she was referred to the emergency department. In the emergency department patient did have labs which I independently reviewed. Her CBC revealed her white blood cell count, hemoglobin, hematocrit, platelet count are all within normal range.She had a chemistry profile in which her sodium, potassium, BUN, and creatinine were all normal. There is no elevation of her LFTs or lipase. Urinalysis was not indicative of infection. A Covid test has been ordered and is pending. A chest x-ray showed no evidence of CHF or pneumonia. I question the patient on her activities of daily living and she is late leads a very active lifestyle working out the gym several times per week. She says with this activity she does not any chest pain or shortness of breath. At time of interview she is resting comfortably in bed and was in no distress. Allergies Allergy/AdvReac Type Severity Reaction Status Date / Time alendronate sodium Allergy Intermediate HIVES/UPSET Verified 12/15/20 14:58 [From Fosamax] STOMACH/LEGS AND ARM CRAMPING carbamazepine Allergy Mild ELEVATED Verified 12/15/20 14:58 LIVER ENZYMES Sulfa (Sulfonamide Allergy Mild HIVES Verified 12/15/20 14:58 Antibiotics) erythromycin base AdvReac Mild N/V Verified 12/15/20 14:58 Home Medications Medication Instructions Recorded Confirmed Type Caltrate 600 plus D 1 tab PO BID 04/11/18 12/15/20 History [place]-3 1 cap PO QDL 04/11/18 12/15/20 History cholecalciferol (vitamin D3) 2,000 unit PO QDL 04/11/18 12/15/20 History [Vitamin D3] eletriptan [Relpax] 1 tab PO UD PRN 04/11/18 12/15/20 History lutein-zeaxanthin 1 cap PO QDL 04/11/18 12/15/20 History ascorbic acid (vitamin C) [Vitamin 500 mg PO QDL 03/16/19 12/15/20 History C] vitamin B complex 1 tab PO QDL 03/16/19 12/15/20 History amlodipine 2.5 mg tablet 2.5 mg PO DAILY #90 tab 09/17/20 12/15/20 Rx levothyroxine 25 mcg tablet 25 mcg PO DAILY #90 tab 09/17/20 12/15/20 Rx pantoprazole 40 mg tablet,delayed 40 mg PO QAM #90 tab 09/17/20 12/15/20 Rx release simvastatin 20 mg tablet 20 mg PO HS #90 tab 09/17/20 12/15/20 Rx Past Med/Surg History Medical History Barretts esophagus GERD (gastroesophageal reflux disease) Hiatal hernia History of ectopic Hyperlipidemia Hypothyroidism Migraine Osteoarthritis Rectal bleeding Surgical History History of breast biopsy History of colonoscopy History of esophagogastroduodenoscopy (EGD) History of hysterectomy History of laparoscopy History of left salpingo-oophorectomy History of tooth extraction Status post biopsy of thyroid gland Family History Mother Family hx of colon cancer Malignant neoplasm of gastrointestinal tract Father Myocardial infarction Hypertension Brother Atrial fibrillation Social History Smoking Status: Never smoker Second Hand Exposure: No; Hx Alcohol Use: No Hx Substance Use: No Preferred Language: Greenlandic Communication Ability: Effective Visual Impairment: Limited Hearing Ability: Normal Merchandise Planning Manager Required: No Beliefs That Will Affect Care: Anabaptism Anabaptism Beliefs: TEMPLE marital status: Current Living Situation: Spouse current occupational status: retired Feels Safe at Home: Yes Childhood Exposure to Second-Hand Smoke: No caffeine: No Dental Care, Regularly: Yes Physical Activity Frequency: 3-4 Times per Week Physical Activity Frequency Comment: cardio/gym Seatbelt Use: always Sunscreen Use: Yes Do you think of yourself as: straight/heterosexual Assistive Devices: Glasses Review of Systems Constitutional: no fever and no chills Eyes: no diplopia Ear, Nose, Mouth, Throat: no ear pain Respiratory: no cough and no dyspnea Cardiovascular: no chest pain Gastrointestinal: + abdominal pain; no nausea, no vomiting and no diarrhea/loose stools Genitourinary: no dysuria Musculoskeletal: no back pain Integumentary: no rash Neurologic: no localized weakness Physical Exam Constitutional: well developed and well nourished; no acute distress Eyes: no conjunctival abnormality ENMT: Ears: no hearing impairment Neck: trachea midline Cardiovascular: Rate/Rhythm: regular rate and regular rhythm Gastrointestinal (Abdomen): Abdomen is soft and nondistended. Patient does have pain with very deep palpation of the right lower quadrant with some slight rebound tenderness noted. Skin: no rashes, warm and dry Neurologic: moves all extremities Psychiatric: A+Ox3, euthymic affect Results & Data Results & Data ([facility]) Vital Signs (Past 12 Hours) Vital Signs Temp Pulse Pulse Resp BP BP Pulse Ox 12/15/20 23:04 86 20 147/59 H 99 12/15/20 20:03 36.7 C 87 18 170/85 H 99 PG Care Time/CCT Total # of Minutes Spent Total Time Spent with Patient: Total time spent is greater than 50% in coordination of care (as documented) at patient's floor/unit and/or counseling patient: Coding Level of Care Code 06481 OBS Care - Level 3 Diagnoses RLQ abdominal pain R10.31
[2020-12-16] MEDS ORDERED: ACETAMINOPHEN 1,000 MG/100 ML VIAL IV PRN (02:20)
[2020-12-16] MEDS ORDERED: MoRPHine SULFATE 4 MG/ML 1 ML CARP\\VIAL IV PRN (02:20)
[2020-12-16] MEDS ORDERED: PIPERACILL/TAZOBAC CONSULT ACTIVE PRN (02:20)
[2020-12-16] MEDS ORDERED: ONDANSETRON INJ 2 MG/ML 2 ML VIAL IV PRN (02:20)
[2020-12-16] MEDS ORDERED: LACTATED RINGER'S 1,000 ML IV SCH (02:30)
[2020-12-16] MEDS: PIPERACILLIN/TAZOBACTAM 3.375 GM in DEXTROSE 5% 100 ML IV SCH ×2 (04:03→12:41)
[2020-12-16 06:39] LABS: Basophils # (auto) 0.03 K/uL (0-0.2); Basophils % (auto) 0.5 %; Eosinophils % (auto) 3.6 %; Hematocrit (blood only) 35.6 % (37-47); Hemoglobin 12.1 g/dL (12.0-16.0); Immature Granulocytes # (auto) 0.02 K/uL (0.00-0.02); Immature Granulocytes % (auto) 0.4 %; Lymphocytes % (auto) 30.2 %; Mean Corpuscular Hemoglobin 31.8 pg (25-34); Mean Corpuscular Volume 93.7 fL (80-100); Mean Platelet Volume 10.2 fL (7.4-10.4); Monocytes # (auto) 0.68 K/uL (0.11-0.59); Monocytes % (auto) 12.1 %; Neutrophils % (auto) 53.2 %; Platelet Count 352 K/uL (130-400); RDW Coefficient of Variation 13.2 % (11.5-14.5); RDW Standard Deviation 45.3 fL (36.4-46.3); White Blood Count 5.63 K/uL (4.8-10.8)
--- NOTE | 2020-12-16 06:43 | XRay Report ---
XR chest 1V portable HISTORY: 70 years-old Female Pt acute appendictis acute right lower quadrant abdominal pain COMPARISON: CT abdomen and pelvis of same day, chest radiographs 10/30/2019 TECHNIQUE: Portable AP view of the chest FINDINGS: The cardiomediastinal and hilar silhouettes are within normal limits. There is no pneumothorax, pleur al effusion, airspace consolidation or overt pulmonary edema. Degenerative changes of the shoulders a nd spine. Mild sigmoidal scoliosis of the thoracic spine. IMPRESSION: No acute process. ACT 112: Negative or not required by law. The above report was generated using voice recognition software. It may contain grammatical, syntax o r spelling errors. Electronically signed by: Shahid Lerner M.D. 12/16/2020 6:42 AM
[2020-12-16 07:05] LABS: BUN Creatinine Ratio 13.7 (10-20); Calcium 8.4 mg/dl (8.5-10.1); Creatinine Clr Calc Pharmacy 37.2 ml/min; Est GFR (African American) 69.4 ml/min; Est GFR (Non-African American) 59.9 ml/min; Potassium 3.7 mmol/L (3.5-5.1)
--- NOTE | 2020-12-16 09:59 | Surgery Progress Note ---
Date of Service December 16, 2020 Assessment & Plan (1) RLQ abdominal pain: Patient feeling well this AM WBC 5.6 on IV zosyn and patient afebrile with stable vital signs Abdominal exam is currently benign, soft/nontender/non distended Discussed CT scan findings with patient including--> sigmoid diverticulitis and a fluid-filled mildly dilated appendix associated with mild appendiceal wall thickening. Although patient reports feeling well she shows some concerns about the findings of her appearance of her appendix on CT scan. Will discuss plan of care with Dr. Hawkins and determine possible trial of diet and home on course of po abx vs proceed with surgical intervention for appendectomy this admission (2) LLQ abdominal pain: Admission and Anticipated Discharge Date Admission Date: December 15, 2020 Supervising Physician Co-Signing Physician Notes Patient seen and examined, labs and imaging reviewed, agree with above. 70-year-old female with 1 to 2 weeks of intermittent lower abdominal/pelvic pain. Yesterday she was seen by a provider who ordered a CT scan which showed possible mild diverticulitis and a dilated appendix with no periappendiceal inflammation. She was admitted overnight and treated with antibiotics and bowel rest. This morning she feels much better, is having no pain. On exam she is afebrile with stable vitals. Her abdomen is soft, nontender, nondistended. Specifically she has absolutely no tenderness in her right lower quadrant. Her white blood cell count is unremarkable for the past [address] hours[address] I reviewed her CT scan and do agree that there is a slightly dilated appendix with possible wall thickening and nonfilling of contrast, however she has no periappendiceal inflammation. There is also a possible mild sigmoid diverticulitis. We discussed her options to include laparoscopic appendectomy versus treatment with antibiotics and outpatient follow-up. At this time she feels well I would like to see how things go with antibiotics. We will advance her diet. Likely discharged home on oral antibiotics either this afternoon or tomorrow. We will treat her for 10 days total. She will need an outpatient colonoscopy in 6 to 8 weeks. We will also likely repeat a CT scan in a few months with oral and IV contrast. She was given strict return precautions to report to the emergency department if her symptoms worsened or recurred. We did briefly discussed the risks of laparoscopic appendectomy as well as the benefits. The diagnosis, details of the procedure and recovery, treatment options, and plan of care discussed with the patient, all questions were answered, the patient expressed understanding agrees the plan of care as stated Subjective Patient denies any pain this AM. Says the pain does come intermittently though when she get it and cannot pin-point any inciting factors and is located in the bilateral lower abdomen. Says she is passing loose stools. No nausea/vomiting. Physical Exam Physical Exam: awake/alert Constitutional: well developed and well nourished; no acute distress Respiratory: normal respiratory effort Gastrointestinal (Abdomen): Inspection/Auscultation: abdomen not distended Percussion/Palpation: abdomen soft; abdomen nontender Results & Data ([facility]) Vital Signs (Past 12 Hours) Vital Signs Temp Pulse Pulse Resp BP Pulse Ox 12/16/20 07:17 36.8 C 76 16 150/75 H 98 12/16/20 02:15 36.7 C 77 12 163/73 H 96 12/16/20 01:56 72 20 136/68 98 12/16/20 00:45 71 20 141/66 H 98 12/15/20 23:04 86 20 147/59 H 99 PG Care Time/CCT Total # of Minutes Spent Total Time Spent with Patient: Total time spent is greater than 50% in coordination of care (as documented) at patient's floor/unit and/or counseling patient: Coding Level of Care Code 32750 Subseq Hosp Care Lvl 1 Diagnoses RLQ abdominal pain R10.31 LLQ abdominal pain R10.32
--- NOTE | 2020-12-17 05:43 | Electrocardiogram Report ---
Test Reason : Blood Pressure : / mmHG Vent. Rate : 083 BPM Atrial Rate : 083 BPM P-R Int : 146 ms QRS Dur : 068 ms QT Int : 378 ms P-R-T Axes : 040 013 047 degrees QTc Int : 444 ms Poor data quality, interpretation may be adversely affected Normal sinus rhythm Poor R wave progression, consider anterior NV vs. lead placement vs. LVH Abnormal ECG When compared with ECG of 30-OCT-2019 17:01, No significant change was found Confirmed by Louis Chavarria ([id number]) on 12/17/2020 5:43:16 AM Referred By: REFERRED SELF Confirmed By:Louis Chavarria
--- NOTE | 2020-12-19 11:53 | Discharge Summary ---
Date of Service December 19, 2020 Admission HPI Per Admitting Provider This is a 70-year-old female who presented to [facility] emergency department secondary to proximately 1 week of abdominal pain. She said the abdominal pain originated in her lower abdomen and has remained there since but is most localized to the right lower quadrant at this time. She denies any radiation of the pain. She denies any palliative or provocative factors. She says she has not had any fevers, shakes, chills. She denies any nausea or vomiting. Denies any change in bowel habits specifically denying any bright blood per rectum or melanotic stools. Patient does note she has had 2 p rior abdominal surgeries including an ectopic as well as a hysterectomy. Because the pain has persisted she went saw her primary care physician who ordered a CT scan of her abdomen and pelvis. This showed concern of a dilated appendix along with the potential for sigmoid diverticulitis. Because of this she was referred to the emergency department. In the emergency department patient did have labs which I independently reviewed. Her CBC revealed her white blood cell count, hemoglobin, hematocrit, platelet count are all within normal range.She had a chemistry profile in which her sodium, potassium, BUN, and creatinine were all normal. There is no elevation of her LFTs or lipase. Urinalysis was not indicative of infection. A Covid test has been ordered and is pending. A chest x-ray showed no evidence of CHF or pneumonia. I question the patient on her activities of daily living and she is late leads a very active lifestyle working out the gym several times per week. She says with this activity she does not any chest pain or shortness of breath. At time of interview she is resting comfortably in bed and was in no distress. Principal Diagnosis diverticulitis, abnormal appendix on imaging Discharge Data Allergies Allergy/AdvReac Type Severity Reaction Status Date / Time alendronate sodium Allergy Intermediate HIVES/UPSET Verified 12/19/20 11:38 [From Fosamax] STOMACH/LEGS AND ARM CRAMPING carbamazepine Allergy Mild ELEVATED Verified 12/19/20 11:38 LIVER ENZYMES Sulfa (Sulfonamide Allergy Mild HIVES Verified 12/19/20 11:38 Antibiotics) erythromycin base AdvReac Mild N/V Verified 12/19/20 11:38 Consultations 12/15/20 23:09 ED Decision to Admit Stat Procedures Performed Operation Date: 12/16/20 07:00 <No data on this case meets the specified criteria> Hospital Course (1) Diverticulitis: 70 y/o female with 1 week of abdominal pain admitted on [address] scan that showed possible diverticulitis and abnormal appearing appendix. Her options were discussed, and she elected for inpatient admission with antibiotics. She was treated for 24 hours with iv antibiotics. Here white blood cell count remained normal, and her abdominal pain resolved. She tolerated a regular diet. She was discharged to home on oral antibiotics. She will follow up with general surgery in a few weeks and coordinate repeat CT scan and colonoscopy. She was given return precautions. (2) Appendix disease: (3) Abdominal pain: Total Time Total Time Spent Total Time Spent (In Minutes): 45 Total Time Includes: Examination of the Patient and Discharge Planning Discharge Plan Discharge Items Patient Disposition: Home - Self-Care Reason For Visit: ABDOMINAL PAIN Discharge Diagnosis: Diverticulitis Activity: Resume your previous activity Non-emergency contact: Surgeon Call non-emergency contact if: you have any medication questions and your pain is not controlled Follow-up/Referrals: Poli Carter MD [Primary Care Provider] - 12/19/20 11:30 am Tee Hawkins DO, FACS [Physician] - (Please call to make an appt in 1-2 weeks) Diet: Low Fiber Addtl Attending Provider Instructions: Pending Studies at Discharge: No Stand-Alone Forms: [employer], Smoking Cessation Medications and DC Order Prescriptions: New amoxicillin-pot clavulanate [Augmentin] 875-125 mg tablet 1 tab PO BID 10 Days Qty: 20 RF: 0 Continued amlodipine 2.5 mg tablet 2.5 mg PO DAILY Qty: 90 RF: 3 simvastatin 20 mg tablet 20 mg PO HS Qty: 90 RF: 3 levothyroxine 25 mcg tablet 25 mcg PO DAILY Qty: 90 RF: 3 pantoprazole 40 mg tablet,delayed release (DR/EC) 40 mg PO QAM Qty: 90 RF: 3 eletriptan [Relpax] 40 mg Tablet 1 tab PO UD PRN (Reason: Migraine Headache) RF: 0 cholecalciferol (vitamin D3) [Vitamin D3] 2,000 unit Capsule 2,000 unit PO QDL RF: 0 Caltrate 600 plus D 600 mg (1,500 mg)-800 unit Tablet,Chewable 1 tab PO BID RF: 0 [place]-3 350 mg-235 mg- 90 mg-597 mg Capsule,Delayed Release(Dr/Ec) 1 cap PO QDL RF: 0 lutein-zeaxanthin 20 mg- 1,000 mcg Capsule 1 cap PO QDL RF: 0 ascorbic acid (vitamin C) [Vitamin C] 500 mg Tablet 500 mg PO QDL RF: 0 vitamin B complex Tablet 1 tab PO QDL RF: 0 No Action magnesium 250 mg tablet 250 mg PO DAILY RF: 0 Discharge Orders: Discharge Order (Routine); Ordered 12/16/20 Ordered By: Bharath Wei Jr Admission Data Admit Date/Time: 12/15/20 23:40 Attending Provider: Tee Hawkins Admit Provider: Tee Hawkins Primary Care Provider: Poli Carter Other Providers: Tee Hawkins Other Interventions: Discharge Summary Assessment (RN) Last Done: 12/16/20 15:25 Coding Level of Care Code D/C Day Management >30 mins Diagnoses Diverticulitis K57.92 Appendix disease K38.9 Abdominal pain R10.9 Abdominal location: unspecified location
== END 2020-12-16 17:21 | disposition home or self-care (01) ==
LOC: 3W 19:24 → ED 19:24 → 3W 12-16 02:04